=== PATIENT | male | born 1970 | race Caucasian/White ===

== ENCOUNTER 2016-11-13 15:55 | Emergency (ER) | payer BC ==
[~2016-11-13] VITALS: Ht 175.3 cm; Wt 90.7 kg
[2016-11-13 15:55] VITALS: BP 151/91; PULSE 91; RESP 24; TEMP 98; O2SAT 97
--- NOTE | 2016-11-13 15:55 | NUR ---
ASSISTED TO WHEELCHAIR AND BROUGHT BACK TO BED #4, FAMILY AT BEDSIDE. PT WAS TRIAGED AND PLACED ON CARDIAC AND O2/BP MONITORS. REPORT GIVEN TO EDISON.
--- NOTE | 2016-11-13 16:00 | NUR ---
PT. TO THE ER AAOx4 FOR COUGH AND CONGESTION FOR 7 DAYS STATES THAT HE FELT SOB BREATH TODAY, CHEST PAIN 7/10 AT THIS TIME, STATES THAT HE HAS BEEN TAKING MUCINEX BUT HAS NOT HELPED MUCH, LUNGS ARE CLEAR TO AUSCULTATION BILATERALLY, NO COUGH PRESENT AT THIS TIME
--- NOTE | 2016-11-13 16:00 | NUR ---
[employer] Teacher at bedside examining the pt.
[2016-11-13] MEDS ORDERED: DEXAMETHASONE SOD PHOSPHATE 10 MG/ML VIAL IVP ONE (16:15)
[2016-11-13] MEDS ORDERED: NACL 0.9% 1,000 ML IV ONE (16:15)
[2016-11-13] MEDS ORDERED: KETOROLAC TROMETHAMINE 30 MG VIAL IVP ONE (16:15)
[2016-11-13] MEDS ORDERED: IPRATROPIUM/ALBUTEROL SULFATE 3 ML AMPUL.NEB INH ONE (16:15)
--- NOTE | 2016-11-13 17:30 | NUR ---
# 24 gauge angiocath placed to rac. Use of asceptic technique. Opsite placed over site. Blood return noted. flushed with 10 cc of normal saline. No evidence of infiltration noted. Patient tolerated well.
[2016-11-13] MEDS ORDERED: IPRATROPIUM/ALBUTEROL SULFATE 3 ML AMPUL.NEB ONE (18:03)
[2016-11-13] MEDS ORDERED: VALSARTAN 80 MG TABLET (DIOVAN) PO ONE (18:45)
--- NOTE | 2016-11-13 18:45 | NUR ---
PT. STATES HE FEELS MUCH BETTER AFTER THE BREATHING TREATMENT, IV FLUIDS RUNNING, BP 179/91 NORA GLUE JOINTER FEEDER NOTIFIED, ORDERS RECEIVED
[2016-11-13 19:20] VITALS: BP 132/78; PULSE 82; RESP 18; TEMP 98; O2SAT 99
--- NOTE | 2016-11-13 19:20 | NUR ---
Patient given written and verbal discharge instructions and verbalizes understanding. ER PROFESSOR OF GEOLOGY NORA FUENTES discussed with patient the results and treatment provided. Patient in stable condition. ID arm band removed. IV catheter removed intact and dressing applied, no active bleeding. Rx of TYLENOL WITH CODEINE DOXYCYCLINE given. Patient educated on pain management and to follow up with PMD. Pain Scale 0/10 Opportunity for questions provided and answered.
== END 2016-11-13 19:20 | disposition home or self-care (01) ==
LOC: SED 15:55
DX: J20.9 Acute bronchitis, unspecified (principal); I10 Essential (primary) hypertension; E78.00 Pure hypercholesterolemia, unspecified; Z88.5 Allergy status to narcotic agent; Z88.6 Allergy status to analgesic agent
CPT/HCPCS: 93005; 94640; 96361; 96374; 96375; 99284; J1100; J1885; J7030

== ENCOUNTER 2017-11-27 19:01 | Emergency (ER) | payer BC ==
[~2017-11-27] VITALS: Ht 175.3 cm; Wt 92.1 kg
[2017-11-27 19:03] VITALS: BP_SYST 150
[2017-11-27 19:42] LABS: EOSINOPHILS # (AUTO) 0.1 K/uL (0.0-0.4); EOSINOPHILS % (AUTO) 1.6 % (0.0-4.0); HEMATOCRIT 49.5 % (36-54); HEMOGLOBIN 16.4 g/dL (14.0-18.0); LYMPHOCYTES # (AUTO) 2.4 K/uL (1.0-5.5); LYMPHOCYTES % (AUTO) 32.2 % (20.5-51.5); MEAN CORPUSCULAR HEMOGLOBIN 31 pg (27-31); MEAN CORPUSCULAR HGB CONC 33 % (32-36); MEAN CORPUSCULAR VOLUME 92 fL (79.0-98.0); MONOCYTES # (AUTO) 0.8 K/uL (0.0-1.0); MONOCYTES % (AUTO) 10.6 % (1.7-9.3); PLATELET COUNT (AUTO) 303 K/uL (130-430); RED BLOOD CELL COUNT(AUTO) 5.37 MIL/uL (4.2-6.2); RED CELL DISTRIBUTION WIDTH 12.7 % (9.0-15.0); WHITE BLOOD COUNT (AUTO) 7.4 K/uL (4.8-10.8)
[2017-11-27 19:43] LABS: BASOPHILS % (AUTO) 0.1 % (0.0-2.0); NEUTROPHILS # (AUTO) 4.1 K/uL (1.8-7.7); NEUTROPHILS % (AUTO) 55.5 % (40.0-70.0)
[2017-11-27 19:49] LABS: ANION GAP 10 (5-15); CALCIUM 9.5 mg/dL (8.4-11.0); CHLORIDE 100 mmol/L (98-107); CREATININE 0.94 mg/dL (0.55-1.30); GLUCOSE 95 mg/dL (70-99); POTASSIUM 3.9 mmol/L (3.5-5.1); SODIUM SERUM 136 mmol/L (136-145); UREA NITROGEN, BLOOD 20 mg/dL (8-21)
[2017-11-27 19:50] LABS: PROTHROMBIN TIME 10.5 SECS (9.5-12.5)
[2017-11-27 19:54] LABS: GFR AFRICAN AMERICAN 110 mL/min (>90)
[2017-11-27 19:58] LABS: ALANINE AMINOTRANSFERASE 41 U/L (12-78); ALBUMIN 3.9 g/dL (3.4-4.8); ASPARTATE AMINOTRANSFERASE 20 U/L (10-37); TOTAL BILIRUBIN 0.4 mg/dL (0.0-1.0)
[2017-11-27] MEDS ORDERED: ASPIRIN 81 MG TAB.CHEW PO ONE (20:00)
[2017-11-27 20:13] LABS: BILIRUBIN,URINE NEGATIVE (NEGATIVE); CLARITY/URINE CLEAR (CLEAR); COLOR,URINE YELLOW (YELLOW); GLUCOSE,URINE NEGATIVE (NEGATIVE); KETONES,URINE NEGATIVE (NEGATIVE); LEUKOCYTE ESTERASE ,URINE NEGATIVE (NEGATIVE); NITRITE, URINE NEGATIVE (NEGATIVE); PROTEIN URINE NEGATIVE (NEGATIVE); UROBILINOGEN,URINE 0.2 (0.2-1.0)
[2017-11-27 20:18] LABS: BLOOD, URINE TRACE (NEGATIVE)
[2017-11-27 20:36] LABS: BACTERIA,URINE RARE /HPF (None Seen); WBC,URINE 0-3 /HPF (0-3)
[2017-11-27 20:55] VITALS: BP_SYST 147
== END 2017-11-27 20:55 | disposition home or self-care (01) ==
LOC: SED 19:01
DX: G62.9 Polyneuropathy, unspecified (principal); I10 Essential (primary) hypertension; E78.00 Pure hypercholesterolemia, unspecified; Z88.6 Allergy status to analgesic agent; Z88.5 Allergy status to narcotic agent
CPT/HCPCS: 36415; 71045; 80053; 81000-TC; 84484; 85025; 85610-TC; 93005; 99285